=== PATIENT | male | born 1935 | race Caucasian/White ===

== ENCOUNTER 2018-09-11 10:15 | Emergency (ER) | payer MEDICARE ==
[2018-09-11 12:13] VITALS: BP 140/76
--- NOTE | 2018-09-11 12:50 | UC ---
Complaint Male HPI - HPI Summary HPI Summary: 83 year old male presents with 3 day history of pain with urination and hematuria. Reports feeling "hot and cold" although no documented fever. He is followed by Dr. Manuel, urology in [place], for an enlarged prostate. Last seen 09/04/2018 and started on QID strait catheterization. He states that he stopped doing the catheterizations 2 days ago due to the hematuria which has improved. Denies abdominal pain, nausea, vomiting, back/flank pain, testicular pain or swelling. - History of Current Complaint Chief Complaint: UCGU Stated Complaint: URINARY COMPLAINT Time Seen by Provider: 09/11/18 12:22 Hx Obtained From: Patient Onset/Duration: Gradual Onset, Lasting Days Severity Currently: Moderate Pain Intensity: 7 Character: Burning Aggravating Factor(s): Voiding Alleviating Factor(s): Nothing Associated Signs And Symptoms: Positive: Hematuria, Dysuria. Negative: Back Pain, Fever, Constipation, Blood in Stool, Rectal Pain, Nausea, Penile Swelling , Penile Discharge - Allergies/Home Medications Allergies/Adverse Reactions: Allergies Allergy/AdvReac Type Severity Reaction Status Date / Time amlodipine Allergy Unknown Unknown Verified 09/11/18 12:36 Reaction Details clonidine Allergy Unknown Unknown Verified 09/11/18 12:36 Reaction Details losartan Allergy Unknown Unknown Verified 09/11/18 12:36 Reaction Details metoprolol Allergy Unknown Unknown Verified 09/11/18 12:36 Reaction Details Penicillins Allergy Unknown Unknown Verified 09/11/18 12:36 Reaction Details spironolactone Allergy Unknown Unknown Verified 09/11/18 12:36 Reaction Details valacyclovir [From Valtrex] Allergy Unknown Unknown Verified 09/11/18 12:36 Reaction Details valsartan [From Diovan] Allergy Unknown Unknown Verified 09/11/18 12:36 Reaction Details dioctyl malate Allergy Unknown Unknown Uncoded 09/11/18 12:36 Reaction Details Home Medications: Home Medications Aspirin EC TAB* [Ecotrin EC Low Dose 81 MG*] 81 mg PO DAILY 09/11/18 [History Confirmed 09/11/18] Chlorthalidone TAB* [Hygroton TAB*] 12.5 mg PO DAILY 09/11/18 [History Confirmed 09/11/18] Glucosam/Chondr/Collagn/Hyalur [Glucosamine & Chondroitin Cap] 1 each PO DAILY 09/11/18 [History Confirmed 09/11/18] Magnesium [Magnesium Elemental] 30 mg PO DAILY 09/11/18 [History Confirmed 09/11] Potassium Gluconate [Potassium] 600 mg PO 09/11/18 [History] Vitamin E CAP* 200 unit PO DAILY 09/11/18 [History Confirmed 09/11/18] Zinc 50 mg PO DAILY 09/11/18 [History Confirmed 09/11/18] amLODIPine TAB* [Norvasc 5 mg TAB*] 2.5 mg PO DAILY 09/11/18 [History Confirmed 09/11/18] PMH/Surg Hx/FS Hx/Imm Hx Previously Healthy: Yes Cardiovascular History: Hypertension Cancer History: Other - BPH - Surgical History Surgical History: Yes Surgery Procedure, Year, and Place: prostate biopsy 03/02/13,GLAUCOMA VALVE WILL BRING CARD. LEFT TOTAL HIP - Family History Known Family History: Positive: Non-Contributory - Social History Occupation: Retired Lives: With Family Alcohol Use: Rare Substance Use Type: None Smoking Status (MU): Former Smoker When Did the Patient Quit Smoking/Using Tobacco: 1965 Household Exposure Type: Cigarettes - Immunization History Most Recent Tetanus Shot: within last 5 yrs Review of Systems All Other Systems Reviewed And Are Negative: Yes Constitutional: Positive: Chills. Negative: Fever Gastrointestinal: Negative: Abdominal Pain, Vomiting, Diarrhea, Nausea Genitourinary: Positive: Dysuria, Hematuria, Frequency. Negative: Urgency, Vaginal/Penile Discharge Is Patient Immunocompromised?: No Physical Exam - Summary Physical Exam Summary: GENERAL APPEARANCE: Well developed, well nourished, alert and cooperative, and appears to be in no acute distress. CARDIAC: Normal S1 and S2. No S3, S4 or murmurs. Rhythm is regular. There is no peripheral edema, cyanosis or pallor. Extremities are warm and well perfused. Capillary refill is less than 2 seconds. LUNGS: Clear to auscultation and percussion without rales, rhonchi, wheezing or diminished breath sounds. ABDOMEN: Positive bowel sounds. Soft, nondistended, nontender. No guarding or rebound. No masses or hepatosplenomegally. No CVA tenderness. GENITALIA: No scrotal swelling. Testicles without tenderness or masses. No penile lesions or drainage. MUSKULOSKELETAL: ROM intact to all extremities. No joint erythema or tenderness. Normal muscular development. Normal gait. EXTREMITIES: No significant deformity or joint abnormality. No edema. Peripheral pulses intact. SKIN: Skin normal color, texture and turgor with no lesions or eruptions. Triage Information Reviewed: Yes Vital Signs: Initial Vital Signs Temp 98.5 F 09/11/18 11:58 Pulse 83 09/11/18 11:58 Resp 18 09/11/18 11:58 BP 140/76 09/11/18 11:58 Pulse Ox 98 09/11/18 11:58 Vital Signs Reviewed: Yes Diagnostics - Laboratory Diagnostic Studies Completed/Ordered: POC UA Trace protein, 2+ blood, + nitrites , 3+ leukocyte esterase. Urine culture pending. Complaint Male Course/Dx - Course Course Of Treatment: 83 year old male presents with 3 day history of pain with urination and hematuria. Reports feeling "hot and cold" although no documented fever. He is followed by Dr. Manuel, urology in [place], for an enlarged prostate. Last seen 09/04/2018 and started on QID strait catheterization. He states that he stopped doing the catheterizations 2 days ago due to the hematuria which has improved. Denies abdominal pain, nausea, vomiting, back/ flank pain, testicular pain or swelling. Afebrile. VSS. Exam was unremarkable. POC UA Trace protein, 2+ blood, + nitrites, 3+ leukocyte esterase. Will treat for UTI however have some concern for possible prostatis. Will start him on 2 week course of cephalexin as there is concern regarding use of fluorquinilone at his age and risk of hyperkalemia with combination of Bactrim and potassium supplement. He is to follow up with his urologist. Warning symptoms reviewed with patient. Verbalizes understanding and agrees with POC. - Differential Dx/Diagnosis Differential Diagnosis/HQI/PQRI: Prostatitis, Pyelonephritis, Urinary Tract Infection Provider Diagnosis: Urinary tract infection Discharge - Sign-Out/Discharge Documenting (check all that apply): Patient Departure All imaging exams completed and their final reports reviewed: No Studies - Discharge Plan Condition: Stable Disposition: HOME Prescriptions: cephALEXin [Keflex] 500 mg PO BID #28 capsule Patient Education Materials: Urinary Tract Infection in Men (ED) Referrals: Woo Salas MD [Primary Care Provider] - Additional Instructions: The urine test performed in the clinic today was suggestive of a urinary tract infection. We will start you on an antibiotic to treat for this. We will also send a urine culture today to see what bacteria grow out and make sure you are on an appropriate antibiotic. It will take 48-72 hours to get these results. Start cephalexin 500 mg 1 cap twice a day for 2 weeks. I would recommend that you continue to catheterize yourself as instructed to avoid urinary retention. Contact Dr. Manuel, urology, to let him know that you are being treated for a urinary tract infection and to see if he wants to have you make any changes to your catheter schedule. I would also recommend that you make a follow up appointment with him within the next 2 weeks as he may need to extend your antibiotic course if this is an infection of the prostate. Seek immediate medical attention in the emergency room if you develop fever greater than 100.5 F, have severe abdominal pain, persistent vomiting, are unable to empty your bladder, have swelling of the lips, tongue, or throat, have difficulty breathing, or any worsening of symptoms. - Billing Disposition and Condition Condition: STABLE Disposition: Home
== END 2018-09-11 13:11 | disposition home or self-care (01) ==
LOC: UCCORT 10:15
DX: N39.0 Urinary tract infection, site not specified (principal); B96.20 Unspecified Escherichia coli [E. coli] as the cause of diseases classified elsewhere; Z88.8 Allergy status to other drugs, medicaments and biological substances; Z88.0 Allergy status to penicillin; I10 Essential (primary) hypertension; Z87.891 Personal history of nicotine dependence
CPT/HCPCS: 81003; 87077; 87086; 87186; 99212; G0463